=== PATIENT | male | born 1980 | race American Indian/Alaskan Native ===

== ENCOUNTER 2016-11-05 03:07 | Inpatient (IN) | payer BC ==
--- NOTE | 2016-11-05 03:40 | ED PDOC ---
Arrival/HPI <Huan Serrano - Last Filed: 11/05/16 05:55> - General Historian: Patient <Pj Rosales - Last Filed: 11/05/16 05:59> - General Chief Complaint: Abdominal Pain Time Seen by Provider: 11/05/16 03:09 - History of Present Illness Narrative History of Present Illness (Text): 11/05/16 03:37 This is a 36 yo M with no significant PMH that presents with abdominal pain for the past couple of hours. Pt states he was lying in bed and woke up with the pain. It is sharp in nature, intermittent primarily over the right quadrants of his abdomen. There is no radiation of pain. He has been having normal BMs. Denies any dark stools or blood. Denies fevers, chills, chest pain, sob, nausea or vomiting. (Pj Rosales) Past Medical History - Provider Review Nursing Documentation Reviewed: Yes - Cardiac Hx Cardiac Disorders: No - Pulmonary Hx Respiratory Disorders: No - Neurological Hx Neurological Disorder: No - HEENT Hx HEENT Disorder: No - Renal Hx Renal Disorder: No - Endocrine/Metabolic Hx Endocrine Disorders: No - Hematological/Oncological Hx Blood Disorders: No - Integumentary Hx Dermatological Disorder: No - Musculoskeletal/Rheumatological Hx Musculoskeletal Disorders: No Hx Falls: No - Gastrointestinal Hx Gastrointestinal Disorders: No - Genitourinary/Gynecological Hx Genitourinary Disorders: No - Psychiatric Hx Psychophysiologic Disorder: No Hx Substance Use: No <Pj Rosales - Last Filed: 11/05/16 05:59> Family/Social History - Physician Review Nursing Documentation Reviewed: Yes Family/Social History: No Known Family HX Smoking Status: Never Smoked Hx Alcohol Use: Yes (socially) Hx Substance Use: No <Pj Rosales - Last Filed: 11/05/16 05:59> Allergies/Home Meds <Huan Serrano - Last Filed: 11/05/16 05:55> <Pj Rosales - Last Filed: 11/05/16 05:59> Allergies/Adverse Reactions: Allergies No Known Allergies Allergy (Verified 05/28/15 21:07) Home Medications: Home Meds Medication Instructions Recorded Confirmed No Known Home Med 05/28/15 11/05/16 Review of Systems - Physician Review All systems were reviewed & negative as marked: Yes - Review of Systems Constitutional: Normal. absent: Fatigue, Fevers Eyes: Normal. absent: Vision Changes, Eye Pain ENT: Normal Respiratory: Normal. absent: SOB, Cough Cardiovascular: Normal. absent: Chest Pain, Palpitations Gastrointestinal: Abdominal Pain. absent: Stool Changes, Constipation, Diarrhea , Nausea, Vomiting Genitourinary Male: Normal. absent: Dysuria, Frequency Musculoskeletal: Normal Skin: Normal. absent: Rash, Pruritis Neurological: Normal. absent: Headache, Dizziness Endocrine: Normal Hemo/Lymphatic: Normal Psychiatric: Normal <Pj Rosales - Last Filed: 11/05/16 05:59> Physical Exam Vital Signs Reviewed: Yes Temperature: Afebrile Blood Pressure: Normal Pulse: Regular Respiratory Rate: Normal Appearance: Positive for: Well-Appearing, Non-Toxic, Comfortable Pain Distress: Mild Mental Status: Positive for: Alert and Oriented X 3 - Systems Exam Head: Present: Atraumatic, Normocephalic Pupils: Present: PERRL Respiratory/Chest: Present: Clear to Auscultation, Good Air Exchange. No: Respiratory Distress Cardiovascular: Present: Regular Rate and Rhythm, Normal S1, S2 Abdomen: Present: Normal Bowel Sounds. No: Tenderness, Distention Upper Extremity: Present: NORMAL PULSES, Neurovascularly Intact Lower Extremity: Present: NORMAL PULSES, Neurovascularly Intact Neurological: Present: Speech Normal, Motor Func Grossly Intact Skin: Present: Warm, Dry Psychiatric: Present: Alert, Oriented x 3 <Pj Rosales - Last Filed: 11/05/16 05:59> Vital Signs Temp Pulse Resp BP Pulse Ox 11/05/16 03:13 97.9 F 67 18 132/78 99 Medical Decision Making <Huan Serrano - Last Filed: 11/05/16 05:55> <Pj Rosales - Last Filed: 11/05/16 05:59> ED Course and Treatment: 11/05/16 04:21 Patient seen and evaluated with resident. Agree with HPI, clinical findings, plan and treatment. Patient is a 36 year old male who presents to the emergency department complaining of right sided intermittent abdominal pain. 11/05/16 05:55 CT abdomen pelvis shows distended gallbladder and choleithiasis. Case discussed with who is aware and agrees with the plan to observe at Med/surg for abdominal pain. Accepts patient under his service. (Huan Serrano) 11/05/16 03:40 36 yo M with diffuse right sided, intermittent abdominal pain Plan: - labs - abdominal xray - reassess and disposition 11/05/16 05:43 CT Abd/pelvis FINDINGS: Lower thorax: No acute findings. ABDOMEN: Liver: No acute findings. Gallbladder and bile ducts: Distended gallbladder. There is cholelithiasis without evidence of cholecystitis. Pancreas: No acute findings. No ductal dilation. Spleen: No acute findings. No splenomegaly. Adrenals: No acute findings. No mass. Kidneys and ureters: No acute findings. No obstructing stones. No hydronephrosis. Stomach and bowel: No acute findings. No obstruction. No mucosal thickening. Appendix: No findings to suggest acute appendicitis. PELVIS: Bladder: No acute findings. No stones. Reproductive: No acute findings. ABDOMEN and PELVIS: Intraperitoneal space: No acute findings. No free air. No significant fluid collection. Bones/joints: No acute fracture. No dislocation. Soft tissues: No acute findings. Vasculature: No acute findings. No abdominal aortic aneurysm. Lymph nodes: No acute findings. No enlarged lymph nodes. IMPRESSION: Distended gallbladder. There is cholelithiasis without evidence of cholecystitis. 11/05/16 05:43 Pt has elevated lipase at 698 11/05/16 05:[address] Montes who agrees to admit pt under his service. Results discussed with pt and is agreeable to admission (Pj Rosales) - Lab Interpretations Lab Results: 11/05/16 04:00 11/05/16 04:00 Lab Results 11/05/16 05:00: Urine Color Yellow, Urine Appearance Clear, Urine pH 6.0, Ur Specific Boykins >= 1.030, Urine Protein Negative, Urine Glucose (UA) Negative, Urine Ketones Negative, Urine Blood Negative, Urine Nitrate Negative, Urine Bilirubin Negative, Urine Urobilinogen 0.2, Ur Leukocyte Esterase Negative 11/05/16 04:00: Sodium 141, Potassium 3.9, Chloride 106, Carbon Dioxide 25, Anion Gap 14, BUN 15, Creatinine 1.2, Est GFR ( Amer) > 60, Est GFR (Non- Af Amer) > 60, Random Glucose 83, Calcium 9.5, Total Bilirubin 0.3, AST 33, ALT 31, Alkaline Phosphatase 134 H, Total Protein 7.4, Albumin 4.2, Globulin 3.1, Albumin/Globulin Ratio 1.4, Lipase 698 H 11/05/16 04:00: WBC 10.7, RBC 5.00, Hgb 15.1, Hct 43.9, MCV 87.8, MCH 30.2, MCHC 34.4, RDW 13.2, Plt Count 273, MPV 10.4, Gran % 67.6, Lymph % (Auto) 20.0 L , Webb % (Auto) 6.9 H, Eos % (Auto) 5.3 H, Baso % (Auto) 0.2, Gran # 7.25 H, Lymph # 2.1, Webb # 0.7 H, Eos # 0.6, Baso # 0.02 - RAD Interpretation Radiology Orders: 11/05/16 04:55 ABD & PELVIS W/O PO OR IV CONT [CT] Stat 11/05/16 05:54 CHEST PORTABLE [RAD] Stat 11/05/16 05:56 BILIARY SCAN (HIDA) [NM] Stat 11/05/16 05:57 GALL BLADDER [US] Stat - PA / TERMINAL SYSTEM OPERATOR / Resident Statement MD/DO has reviewed & agrees with the documentation as recorded. MD/ has examined the patient and agrees with the treatment plan. <Huan Serrano - Last Filed: 11/05/16 05:55> <Pj Rosales - Last Filed: 11/05/16 05:59> - Scribe Statement Tiffany Gilbert Provider Scribe Attestation: All medical record entries made by the Scribe were at my direction and personally dictated by me. I have reviewed the chart and agree that the record accurately reflects my personal performance of the history, physical exam, medical decision making, and the department course for this patient. I have also personally directed, reviewed, and agree with the discharge instructions and disposition. (Huan Serrano) Disposition/Present on Arrival <Huan Serrano - Last Filed: 11/05/16 05:55> - Present on Arrival Any Indicators Present on Arrival: No History of DVT/PE: No History of Uncontrolled Diabetes: No Urinary Catheter: No History of Decub. Ulcer: No History Surgical Site Infection Following: None - Disposition Have Diagnosis and Disposition been Completed?: Yes Disposition Time: 05:59 Patient Plan: Admission <Pj Rosales - Last Filed: 11/05/16 05:59> - Disposition Diagnosis: Abdominal pain Disposition: HOSPITALIZED Condition: STABLE Referrals: Rebecca Tijerina MD [Primary Care Provider] - Follow up with primary
[2016-11-05 04:24] LABS: ADD MANUAL DIFF? NO
[2016-11-05 04:44] LABS: BASO # 0.02 K/mm3 (0.0-2.0); BASO % 0.2 % (0.0-3.0); EOS # 0.6 (0.0-0.7); EOS % 5.3 % (1.5-5.0); GRAN # 7.25 (1.4-6.5); GRAN % 67.6 % (50.0-68.0); HEMATOCRIT 43.9 % (42.0-52.0); LYMPH # 2.1 (1.2-3.4); MEAN CELL VOLUME 87.8 fL (80.0-105.0); MEAN CORPUSCULAR HEMOGLOBIN 30.2 pg (25.0-35.0); MEAN CORPUSCULAR HGB CONC 34.4 g/dl (31.0-37.0); MEAN PLATELET VOLUME 10.4 fl (7.0-11.0); MONO # 0.7 (0.1-0.6); MONO % 6.9 % (1.0-6.0); PLATELET COUNT 273 10^3/uL (120.0-450.0); RED CELL DISTRIBUTION WIDTH 13.2 % (11.5-14.5); WHITE BLOOD COUNT 10.7 10^3/ul (4.5-11.0)
[2016-11-05 05:07] LABS: ALB/GLOB RATIO 1.4 (1.1-1.8); ALKALINE PHOSPHATASE 134 U/L (38-133); ALT/SGPT 31 U/L (7-56); AST/SGOT 33 U/L (15-59); BILIRUBIN,TOTAL 0.3 mg/dL (0.2-1.3); BLOOD UREA NITROGEN 15 mg/dL (7-21); CALCIUM 9.5 mg/dL (8.4-10.5); CARBON DIOXIDE 25 mmol/L (21-33); CHLORIDE 106 mmol/L (98-107); GFR AFRICAN-AMERICAN > 60; GLUCOSE,RANDOM 83 mg/dL (70-110); LIPASE 698 U/L (23-300); POTASSIUM 3.9 mmol/L (3.6-5.0); SODIUM 141 mmol/L (132-148); TOTAL PROTEIN 7.4 g/dL (5.8-8.3)
[2016-11-05 05:40] LABS: URINE BILIRUBIN NEGATIVE (NEGATIVE); URINE BLOOD NEGATIVE (NEGATIVE); URINE GLUCOSE (UA) NEGATIVE (NEGATIVE); URINE KETONE NEGATIVE (NEGATIVE); URINE LEUKOCYTE ESTERASE NEGATIVE Leu/uL (NEGATIVE); URINE PROTEIN NEGATIVE mg/dL (<30 mg/dL); URINE UROBILINOGEN 0.2 E.U./dL (<1 E.U./dL)
[2016-11-05 05:47] LABS: URINE APPEARANCE CLEAR (CLEAR); URINE COLOR YELLOW (YELLOW)
[2016-11-05] MEDS ORDERED: Sodium Chloride 0.9% 1,000 ML IV STA (05:55)
--- NOTE | 2016-11-05 07:51 | CT ---
PROCEDURE: CT Abdomen and Pelvis without intravenous contrast HISTORY: Abdominal pain COMPARISON: None. TECHNIQUE: CT scan of the abdomen and pelvis was performed without administration of intravenous contrast. Oral contrast was not administered. Coronal and sagittal reformatted images were obtained. Radiation dose: Total exam DLP = 992.49 mGy-cm. This CT exam was performed using one or more of the following dose reduction techniques: Automated exposure control, adjustment of the mA and/or kV according to patient size, and/or use of iterative reconstruction technique. FINDINGS: LOWER THORAX: There is bibasilar subsegmental atelectasis/scarring. LIVER: The liver is normal in size. No intrahepatic biliary ductal dilatation. GALLBLADDER AND BILE DUCTS: The gallbladder is distended and there is a small gallstone. No wall thickening or pericholecystic fluid. PANCREAS: The pancreas is normal in size. No ductal dilatation or calcifications. SPLEEN: The spleen is normal in size. ADRENALS: Both adrenal glands are normal in size without discrete nodule. There are calcifications in the medial limb of the left adrenal gland. KIDNEYS AND URETERS: Both kidneys are normal in size without hydronephrosis or nephrolithiasis. VASCULATURE: No evidence of aortic aneurysm. BOWEL: The small bowel loops are normal in caliber. There are scattered left colonic diverticula without CT evidence for acute diverticulitis. APPENDIX: Normal appendix. PERITONEUM: No free fluid. No free air. LYMPH NODES: No enlarged lymph nodes. BLADDER: Partially decompressed. REPRODUCTIVE: The prostate gland is normal in size. BONES: No acute fracture. Within normal limits for the patient's age with OTHER FINDINGS: None. IMPRESSION: Gallbladder distention and cholelithiasis. Please correlate clinically and with right upper quadrant ultrasound to exclude acute cholecystitis. Scattered left colonic diverticula without CT evidence for acute diverticulitis. A preliminary report was provided by [employer].
--- NOTE | 2016-11-05 08:40 | RAD ---
HISTORY: cp COMPARISON: 05/28/2015 FINDINGS: LUNGS: No active pulmonary disease. PLEURA: No significant pleural effusion identified, no pneumothorax apparent. CARDIOVASCULAR: Normal. OSSEOUS STRUCTURES: No significant abnormalities. VISUALIZED UPPER ABDOMEN: Normal. OTHER FINDINGS: None. IMPRESSION: No active disease.
--- NOTE | 2016-11-05 09:38 | US ---
HISTORY: Abdominal pain COMPARISON: None. TECHNIQUE: Grayscale imaging was performed. FINDINGS: LIVER: Measures 15.1 cm in length. Normal echogenicity of the liver parenchyma. No mass. No intrahepatic bile duct dilatation. GALLBLADDER: Unremarkable. No gallstones. COMMON BILE DUCT: Measures 4.5 mm. No stones. No dilatation. PANCREAS: Obscured by bowel gas. RIGHT KIDNEY: Measures 11.0 cm in length. Normal echogenicity. No calculus, mass, or hydronephrosis. AORTA: No aneurysmal dilatation. IVC: Unremarkable. OTHER FINDINGS: None . IMPRESSION: Limited examination due to excessive bowel gas. Allowing for this, no cholelithiasis or biliary dilatation. No nephrolithiasis.
[2016-11-05] MEDS: Sodium Chloride 0.9% 1,000 ML IV SCH ×2 (09:53→18:27)
[2016-11-05 11:12] LABS: INR 0.96 (0.93-1.08); PARTIAL THROMBOPLASTIN TIME 24.6 Seconds (23.7-30.8)
--- NOTE | 2016-11-05 12:39 | CP.PCM.PCO ---
Physician Communication Note - Physician Communication Note Physician Communication Note: Non Viz GB/Pancreatitis-?passed stone/?Add - On OR
[2016-11-05] MEDS: Piperacillin/Tazobact 3.375 gm 100 ML IVPB SCH ×3 (12:45→23:40)
[2016-11-05] MEDS ORDERED: Pneumococcal 23-Valent Vaccine IM ONE (13:14)
[2016-11-05 13:15] VITALS: BMI 34.5
[2016-11-05] MEDS: metroNIDAZOLE IV 500 mg/100 ml 500 MG/100 ML BAG IVPB SCH ×2 (14:06→23:32)
--- NOTE | 2016-11-05 16:04 | CP.PCM.CON ---
<Rosemarie Dougherty - Last Filed: 11/05/16 16:00> History of Present Illness - History of Present Illness History of Present Illness: Surgery: Dr. Brown CC: RUQ abdominal pain HPI: 36 y/o male who presents complaining of RUQ pain that started last night which woke him from sleep. He reports the pain as severe in nature and describes pain as "twisting, sharp" and takes his breath away. He denies having pain like this in the past and currently states the pain has resolved. He reports being in normal state of health at bedtime. He denies the pain being exacerbated by food. He reports movement and walking around made the pain better. He denies f/c/n/v. He reports normal bowel movements, denies diarrhea or constipation. PMH: denies PSH: tooth extraction Social: lives with at home w/ children. Report occasional ETOH and social tobacco use. Fhx: denies family history of gallbladder problems or colon disease. Review of Systems - Review of Systems All systems: reviewed and no additional remarkable complaints except Review of Systems: unless stated in HPI Past Patient History - Past Social History Smoking Status: Current Some Days Smoker (socially, [place]) - CARDIAC Hx Cardiac Disorders: No Other/Comment: chest pain may 2015 "turned out to be gas" - PULMONARY Hx Respiratory Disorders: No - NEUROLOGICAL Hx Neurological Disorder: No - HEENT Hx HEENT Problems: No - RENAL Hx Chronic Kidney Disease: No - ENDOCRINE/METABOLIC Hx Endocrine Disorders: No - HEMATOLOGICAL/ONCOLOGICAL Hx Blood Disorders: No - INTEGUMENTARY Hx Dermatological Problems: No - MUSCULOSKELETAL/RHEUMATOLOGICAL Hx Musculoskeletal Disorders: No Hx Falls: No - GASTROINTESTINAL Hx Gastrointestinal Disorders: No - GENITOURINARY/GYNECOLOGICAL Hx Genitourinary Disorders: No - PSYCHIATRIC Hx Psychophysiologic Disorder: No Hx Substance Use: No - SURGICAL HISTORY Hx Surgeries: No Meds Allergies/Adverse Reactions: Allergies Allergy/AdvReac Type Severity Reaction Status Date / Time No Known Allergies Allergy Verified 05/28/15 21:07 - Medications Medications: Current Medications Sodium Chloride (Sodium Chloride 0.9%) 1,000 mls @ 125 mls/hr IV .Q8H NEFTALY Stop: 11/08/16 15:44 Last Admin: 11/05/16 09:53 Dose: 125 mls/hr Metronidazole (Flagyl) 500 mg in 100 mls @ 100 mls/hr IVPB Q8 NEFTALY PRN Reason: Protocol Stop: 11/08/16 14:59 Last Admin: 11/05/16 14:06 Dose: 100 mls/hr Piperacillin Sod/Tazobactam Sod (Zosyn 3.375 In Ns 100ml) 100 mls @ 200 mls/hr IVPB Q6 NEFTALY PRN Reason: Protocol Stop: 11/10/16 06:29 Last Admin: 11/05/16 12:45 Dose: 200 mls/hr Ondansetron HCl (Zofran Inj) 4 mg IVP Q4H PRN PRN Reason: Nausea/Vomiting Pantoprazole Sodium (Protonix Inj) 40 mg IVP Q12 NEFTALY Last Admin: 11/05/16 11:14 Dose: 40 mg Physical Exam - Constitutional Appears: Well, Non-toxic, No Acute Distress - Head Exam Head Exam: ATRAUMATIC, NORMOCEPHALIC - Eye Exam Eye Exam: EOMI, Normal appearance - ENT Exam ENT Exam: Mucous Membranes Moist - Respiratory Exam Respiratory Exam: NORMAL BREATHING PATTERN. absent: Respiratory Distress - Cardiovascular Exam Cardiovascular Exam: REGULAR RHYTHM. absent: Tachycardia - GI/Abdominal Exam GI & Abdominal Exam: Soft. absent: Distended, Guarding, Rebound, Rigid, Tenderness - Extremities Exam Extremities exam: Negative for: calf tenderness - Neurological Exam Neurological exam: Alert, Oriented x3 - Psychiatric Exam Psychiatric exam: Normal Affect, Normal Mood - Skin Skin Exam: Dry, Normal Color, Warm Results - Vital Signs Recent Vital Signs: Last Vital Signs Temp 97.8 F 11/05/16 13:06 Pulse 66 11/05/16 13:06 Resp 18 11/05/16 13:06 BP 111/62 11/05/16 13:06 Pulse Ox 98 11/05/16 07:21 - Labs Result Diagrams: 11/05/16 04:00 11/05/16 04:00 Labs: Laboratory Results - last 24 hr 11/05/16 11/05/16 11/05/16 10:45 11:00 12:30 PT 10.4 INR 0.96 APTT 24.6 Amylase 136 H Urine Opiates Screen Negative Urine Methadone Screen Negative Ur Barbiturates Screen Negative Ur Phencyclidine Scrn Negative Ur Amphetamines Screen Negative U Benzodiazepines Scrn Negative U Oth Cocaine Metabols Negative U Cannabinoids Screen Negative - Impressions Impression: HIDA: gallbladder not visualized Assessment & Plan - Assessment and Plan (Free Text) Assessment: 36 y/o male w/ RUQ abdominal pain most likely 2/2 cholelithiasis Plan: -HIDA scan positive, w/ slightly elevated lipase, possible gallstone pancreatitis -abdominal pain resolved at this time -will plan for OR on Friday -NPO at [place] -cont IVFs -pain control -am labs -[facility] <Gilmar Brown - Last Filed: 11/05/16 17:09> Meds - Medications Medications: Current Medications Sodium Chloride (Sodium Chloride 0.9%) 1,000 mls @ 125 mls/hr IV .Q8H NEFTALY Stop: 11/08/16 15:44 Last Admin: 11/05/16 09:53 Dose: 125 mls/hr Metronidazole (Flagyl) 500 mg in 100 mls @ 100 mls/hr IVPB Q8 NEFTALY PRN Reason: Protocol Stop: 11/08/16 14:59 Last Admin: 11/05/16 14:06 Dose: 100 mls/hr Piperacillin Sod/Tazobactam Sod (Zosyn 3.375 In Ns 100ml) 100 mls @ 200 mls/hr IVPB Q6 NEFTALY PRN Reason: Protocol Stop: 11/10/16 06:29 Last Admin: 11/05/16 12:45 Dose: 200 mls/hr Ondansetron HCl (Zofran Inj) 4 mg IVP Q4H PRN PRN Reason: Nausea/Vomiting Pantoprazole Sodium (Protonix Inj) 40 mg IVP Q12 NEFTALY Last Admin: 11/05/16 11:14 Dose: 40 mg Results - Vital Signs Recent Vital Signs: Last Vital Signs Temp 97.8 F 11/05/16 13:06 Pulse 66 11/05/16 13:06 Resp 18 11/05/16 13:06 BP 111/62 11/05/16 13:06 Pulse Ox 98 11/05/16 07:21 - Labs Result Diagrams: 11/05/16 04:00 11/05/16 04:00 Labs: Laboratory Results - last 24 hr 11/05/16 11/05/16 11/05/16 10:45 11:00 12:30 PT 10.4 INR 0.96 APTT 24.6 Amylase 136 H Urine Opiates Screen Negative Urine Methadone Screen Negative Ur Barbiturates Screen Negative Ur Phencyclidine Scrn Negative Ur Amphetamines Screen Negative U Benzodiazepines Scrn Negative U Oth Cocaine Metabols Negative U Cannabinoids Screen Negative Assessment & Plan - Assessment and Plan (Free Text) Plan: Gallstone Pancreatitis Rx If pancreatitis continues to defervwesce the patient can have the GB/IOC in the am--he and his concur This consultation done under my direct supervisdion Kvng Brown MD FACS
--- NOTE | 2016-11-05 16:20 | CON ---
DATE: 11/05/2016 REQUESTING PHYSICIAN: Dr. Montes. REASON FOR CONSULTATION: I have been asked to see this 36-year-old male who was admitted to the hosp ital after experiencing severe right upper quadrant abdominal pain which woke him up from sleep. The patient states that he had a pastrami sandwich and chicken fingers the evening prior to developing h is pain. He experienced some nausea, but no vomiting. He denies any fevers or chills. He denies an y prior medical problems. CT scan of the abdomen performed in the Emergency Room showed a small gall stone with a distended gallbladder. The patient was also found to have an elevated lipase in the 600 range. The patient also underwent a hepatobiliary scan, which initially showed nonvisualization of the gallbladder. Delayed studies are pending. He currently denies any abdominal pain. PAST MEDICAL HISTORY: Unremarkable. SOCIAL HISTORY: He consumes alcohol socially, denies cigarette smoking. FAMILY HISTORY: Noncontributory. REVIEW OF SYSTEMS: A 14-point review of systems is notable for right upper quadrant abdominal pain a nd nausea. PHYSICAL EXAMINATION: GENERAL: Well-developed male lying in bed in no acute distress. VITAL SIGNS: Reveal temperature of 97.8, blood pressure 111/62, heart rate 66. HEENT: Reveals sclerae to be white, conjunctivae pink. NECK: Supple. CHEST: Lungs are clear. HEART: Reveals a regular rate and rhythm. ABDOMEN: Obese, soft, nontender. EXTREMITIES: Show no edema. LABORATORY DATA: Reveal white blood cell count 10.7, hemoglobin 15.1. Chemistries reveal normal kashif ctrolytes. Normal AST, ALT, alkaline phosphatase 134, amylase 136, lipase is 698. IMPRESSION: A 36-year-old male awakened in the middle of night with severe right upper quadrant abdo mamta pain with a CT scan of the abdomen and pelvis showing a small gallstone and a distended gallbla dder with elevated amylase and lipase. Initial hepatobiliary scan shows nonvisualization of gallblad wing. The patient has gallstone pancreatitis with no CT evidence of pancreatitis. RECOMMENDATIONS: 1. Keep n.p.o. 2. Continue IV fluid hydration. 3. Analgesics as needed. 4. Surgical evaluation for cholecystectomy. Huan Fountain MD cc: 79 TT: 11/05/2016 16:19:28 Confirmation # [id number] Dictation # [id number] dn
--- NOTE | 2016-11-05 18:00 | NM ---
PROCEDURE: Nuclear Medicine Hepatobiliary Scan HISTORY: ruq pain COMPARISON: November 05, 2016. Right upper quadrant ultrasound TECHNIQUE: 5.2 mCi of technetium 99m Mebrofenin was administered intravenously. Planar images of the abdomen were obtained at 5 min intervals to 60 mins. Delayed images were also obtained. FINDINGS: LIVER: Timely and homogenous uptake. COMMON BILE DUCT: identified at 10 mins. GALLBLADDER: identified at 5 hours. SMALL BOWEL: Identified at 10 mins. IMPRESSION: Normal Hepatobiliary Scan. The cystic duct is patent. Delayed vision of the gallbladder identified.
--- NOTE | 2016-11-05 18:20 | HP ---
The patient is a 36-year-old -Israeli male who presented to the Emergency Room with upper trace drant and epigastric pain since 1:00 this morning. The patient denies any changes in his usual habit . The patient's 13-system review was positive for right upper quadrant epigastric upper abdominal pa in. The patient woke up with this pain. The patient described the pain as severe. The patient hilton es any nausea, vomiting, diarrhea. Denies any hemoptysis, hematemesis, melena. CODE STATUS: Full code. LIVING WILL AND ADVANCED DIRECTIVE: None. ALLERGIES: None. HEIGHT: 5 feet 9 inches. WEIGHT: 234. BMI: 35. ALLERGIES: None. HOME MEDICATIONS: None. SOCIAL HISTORY: Denies substance abuse. Social alcohol use and minimal smoking of cigarettes. FAMILY HISTORY: Not available. 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 ALLERGIES: None. PAST SURGICAL HISTORY: The patient denied. SOCIAL HISTORY: Positive for social alcohol use. PHYSICAL EXAMINATION: VITAL SIGNS: T-max 97.8, pulse 67-74, blood pressure 111/62 to 132/78, respirations 18, O2 sat 97%-9 8%. GENERAL: The patient is seen lying in the bed. HEAD: Normocephalic, atraumatic. HEENT: Shows pink conjunctivae, anicteric sclerae. No oropharyngeal lesion. NECK: No neck rigidity, soft carotid bruit. CHEST: Kyphosis. LUNGS: Shows no rales, crackles, or wheezing. CARDIOVASCULAR: Shows S1, S2, regular rhythm. ABDOMEN: Soft, protuberant. Positive epigastric. Positive . Positive right upper quadrant te nderness. No rebound tenderness. Positive voluntary guarding. No costovertebral angle tenderness. GENITALIA: Male. RECTAL: Deferred. EXTREMITIES: Shows no pitting edema, no calf tenderness, no Homans' sign. NEUROLOGIC: The patient is alert, awake, oriented x 3. Cranial nerves II-XII intact. Gait examinat ion is not tested. MUSCULOSKELETAL: Shows a body mass index of 36. VASCULAR: Palpable pulses. NEUROLOGIC: The patient has no deficit. Cranial nerves II-XII intact. DIAGNOSTICS: WBC 10.7, hemoglobin and hematocrit 15.1 and 43.9, platelet 273. Differential is michele l. PT, PTT is 10.4 and 24.6. Sodium 141, potassium 3.9, chloride 106, CO2 of 25, anion gap 14, BUN 15, creatinine 1.2, GFR greater than 60, glucose 83, calcium 9.5, alkaline phosphatase 134. Amylase 136, lipase 698. Urine pH 6.0, specific gravity greater than 1.030. Rest of the urinalysis is negat sharifa. Urine drug screen is negative. The patient had an abdominal CT done, which was reviewed, which shows: 1. Bibasilar subsegmental atelectasis and scarring. 2. Distended gallbladder and small gallstone. Colonic diverticulosis noted. Gallbladder distention with cholelithiasis noted. Scattered colonic diverticulosis noted. The patient also had a chest x-ray done, which shows no active disease. The patient's gallbladder ul trasound was noted. Gallbladder ultrasound was noted. EKG done in the Emergency Room shows sinus rh ythm. The patient was evaluated in the Emergency Room. The patient had a HIDA scan done, which show s nonvisualization of gallbladder. IMPRESSION AND PLAN: 1. Questionable and probable acute cholecystitis with nonvisualized visualization of the gallbladder . 2. Upper abdominal and right upper quadrant abdominal pain. 3. Cholelithiasis with distended gallbladder. 4. Questionable gallstone pancreatitis. 5. Gallstone pancreatitis. 6. Questionable biliary colic. 7. Nonvisualized gallbladder on HIDA scan with gallstone pancreatitis. 8. Obesity with elevated body mass index of 35. 9. Elevated alkaline phosphatase. 10. Bibasilar atelectasis. 11. Distended gallbladder with cholelithiasis. 12. Left adrenal gland calcification. 13. Scattered left colonic diverticulosis without diverticulitis. PLAN: At this time, the patient has been admitted to [facility]. The patient has been ordered serial labs. Gastrointestinal consultation and surgical consultation ordered. CURRENT MEDICATIONS: 1. DuoNeb nebulizer every 6 hours. 2. Flagyl 500 IV q. 8. 3. Protonix 40 mg IV q. 12. 4. IV fluids 0.9 normal saline at 125 mL an hour. 5. Zofran 4 mg IV q. 4 p.r.n. 6. Zosyn 3.375 grams IV q. 6 hours. The patient has been ordered chest PT, incentive spirometry. The patient is kept n.p.o. diet. Out o f bed to chair, SCDs, LYSSA chiuings ordered. At present, the patient seen by Dr. Brown from [facility] and Dr. Fountain from GI, both recommending surgical intervention within the next 24-48 hours, which t he patient has been informed about. At present, the patient is seen in room 565, bed 2. The patient was updated and explained about the details of his medical condition, diagnosis, test results, etc., was explained to the patient in [facility] and all questions and concerns answered, which he acknowledged and understood. Dictated, electronically signed, not read. Obinna Montes MD cc: [id number] TT: 11/05/2016 18:19:30 az
[2016-11-05] MEDS: Albuterol-Ipratrop 3 mg / 0.5 (3 ml) UD IH SCH (20:19)
--- NOTE | 2016-11-05 22:35 | CARD ---
APPROVED REPORT EKG Measurement Heart [id number] <Conclusion> Normal sinus rhythm Normal ECG
[2016-11-06] MEDS: Albuterol-Ipratrop 3 mg / 0.5 (3 ml) UD IH SCH ×3 (02:10→20:13)
[2016-11-06] MEDS: Sodium Chloride 0.9% 1,000 ML IV SCH ×2 (05:20→16:08)
[2016-11-06] MEDS: Piperacillin/Tazobact 3.375 gm 100 ML IVPB SCH ×2 (05:23→21:06)
[2016-11-06] MEDS: metroNIDAZOLE IV 500 mg/100 ml 500 MG/100 ML BAG IVPB SCH ×3 (05:24→21:19)
[2016-11-06 07:07] LABS: ADD MANUAL DIFF? NO
[2016-11-06 07:12] LABS: BASO # 0.03 K/mm3 (0.0-2.0); BASO % 0.4 % (0.0-3.0); EOS # 0.3 (0.0-0.7); EOS % 4.3 % (1.5-5.0); GRAN # 5.09 (1.4-6.5); GRAN % 64.7 % (50.0-68.0); HEMATOCRIT 42.4 % (42.0-52.0); LYMPH # 1.9 (1.2-3.4); LYMPH % 24.7 % (22.0-35.0); MEAN CORPUSCULAR HEMOGLOBIN 30.5 pg (25.0-35.0); MEAN CORPUSCULAR HGB CONC 34.7 g/dl (31.0-37.0); MONO # 0.5 (0.1-0.6); MONO % 5.9 % (1.0-6.0); PLATELET COUNT 254 10^3/uL (120.0-450.0); RED CELL DISTRIBUTION WIDTH 13.2 % (11.5-14.5); WHITE BLOOD COUNT 7.9 10^3/ul (4.5-11.0)
[2016-11-06 07:26] LABS: ALB/GLOB RATIO 1.2 (1.1-1.8); ALKALINE PHOSPHATASE 86 U/L (38-133); ALT/SGPT 34 U/L (7-56); AMYLASE 97 U/L (35-125); AST/SGOT 25 U/L (15-59); BILIRUBIN,DIRECT 0.3 mg/dL (0.0-0.4); BILIRUBIN,TOTAL 1.2 mg/dL (0.2-1.3); BLOOD UREA NITROGEN 13 mg/dL (7-21); CALCIUM 9.2 mg/dL (8.4-10.5); CARBON DIOXIDE 22 mmol/L (21-33); CHLORIDE 109 mmol/L (98-107); GFR AFRICAN-AMERICAN > 60; GLUCOSE,RANDOM 79 mg/dL (70-110); LIPASE 251 U/L (23-300); POTASSIUM 3.9 mmol/L (3.6-5.0); SODIUM 139 mmol/L (132-148); TOTAL PROTEIN 6.5 g/dL (5.8-8.3)
[2016-11-06] MEDS ORDERED: Propofol 10 mg/ml Inj (20 ML) ONE (10:04)
[2016-11-06] MEDS ORDERED: Succinylcholine 200 mg/10 ml Inj IV ONE (10:05)
[2016-11-06] MEDS ORDERED: Rocuronium 10 mg/ml (5 ml) ONE (10:05)
[2016-11-06] MEDS ORDERED: Neostigmine Methylsulfate 3mg/3ml Syringe IV ONE (10:05)
[2016-11-06] MEDS ORDERED: Lidocaine 1% Inj (20ml) ONE (10:06)
[2016-11-06] MEDS ORDERED: Bupivacaine 0.5% Inj(30mL) ONE (10:12)
[2016-11-06] MEDS ORDERED: Iohexol 240 (50 ml) ONE (10:12)
--- NOTE | 2016-11-06 10:48 | PN ---
DATE: 11/06/2016 SUBJECTIVE: The patient is lying in bed. He feels much better without any further abdominal pain. He has not had any further nausea and vomiting. PHYSICAL EXAMINATION: VITAL SIGNS: Reveal temperature of 97.9, blood pressure 120/76, heart rate 64. HEENT: Reveals sclerae to be white, conjunctivae pink. NECK: Supple. CHEST: Lungs are clear. HEART: Reveals regular rate and rhythm. ABDOMEN: Soft, nontender, flabby. No mass. EXTREMITIES: Show no edema. LABORATORY DATA: Reveal normal CBC, normal white count. Chemistries reveal chloride 109. AST, ALT, alk phos are all normal. Amylase and lipase are normal this morning. Hepatobiliary scan showed del ayed visualization of the gallbladder. IMPRESSION: A 36-year-old male with sudden onset of right upper quadrant abdominal pain, found to johnson ve elevated amylase and lipase consistent with gallstone pancreatitis. The patient most likely passe d a small stone or sludge. RECOMMENDATIONS: The patient is to have a cholecystectomy today. Huan Fountain MD cc: [phone] TT: 11/06/2016 10:47:35 Confirmation # [id number] Dictation # [id number] kalli
[2016-11-06] MEDS ORDERED: Lactated Ringer's 1,000 ML IV SCH (12:26)
[2016-11-06] MEDS ORDERED: HYDROmorphone 0.5 mg/0.5 ml ISec IVP PRN (12:26)
[2016-11-06] MEDS ORDERED: HYDROmorphone 1 mg/ml ISec IVP PRN (12:29)
--- NOTE | 2016-11-06 12:29 | PCM.SURG1 ---
Surgeon's Initial Post Op Note - Surgeon's Notes Surgeon: Kevin Facilities Mechanical Design Engineer: PGY3 Type of Anesthesia: General Endo Pre-Operative Diagnosis: Gallstone pancreatitis Operative Findings: gallstones Post-Operative Diagnosis: Gallstone pancreatitis Operation Performed: Laparoscopic cholecystectomy with IOC, Lysis of adhesions, fulguration of the gallbladder fossa Specimen/Specimens Removed: gallbladder Estimated Blood Loss: EBL {In ML}: 50 Blood Products Given: N/A Drains Used: Francisco Post-Op Condition: Good Date of Surgery/Procedure: 11/06/16 Time of Surgery/Procedure: 10:15
--- NOTE | 2016-11-06 15:41 | RAD ---
PROCEDURE: Operative cholangiogram HISTORY: R/O OBSTRUCTION COMPARISON: TECHNIQUE: Fluoroscopy was provided in the operating room. Four images were submitted FINDINGS: Contrast flows into the duodenum without obstruction. The common duct is normal in caliber with no filling defects IMPRESSION: As above
[2016-11-06 16:55] LABS: ADD MANUAL DIFF? NO
[2016-11-06 17:15] LABS: BASO # 0.02 K/mm3 (0.0-2.0); BASO % 0.1 % (0.0-3.0); EOS # 0.1 (0.0-0.7); EOS % 0.5 % (1.5-5.0); GRAN # 10.88 (1.4-6.5); GRAN % 80.5 % (50.0-68.0); HEMATOCRIT 41.6 % (42.0-52.0); LYMPH # 1.7 (1.2-3.4); LYMPH % 12.6 % (22.0-35.0); MEAN CELL VOLUME 88.5 fL (80.0-105.0); MEAN CORPUSCULAR HEMOGLOBIN 30.2 pg (25.0-35.0); MEAN CORPUSCULAR HGB CONC 34.1 g/dl (31.0-37.0); MEAN PLATELET VOLUME 10.4 fl (7.0-11.0); MONO # 0.9 (0.1-0.6); MONO % 6.3 % (1.0-6.0); PLATELET COUNT 298 10^3/uL (120.0-450.0); RED CELL DISTRIBUTION WIDTH 12.8 % (11.5-14.5); WHITE BLOOD COUNT 13.5 10^3/ul (4.5-11.0)
[2016-11-06] MEDS ORDERED: Piperacillin/Tazobact 3.375 gm 100 ML IVPB SCH (18:00)
--- NOTE | 2016-11-06 18:53 | CP.PCM.PCO ---
Physician Communication Note - Physician Communication Note Physician Communication Note: PO 25cc blood-drain/HgB stable 14.2/Rx Liquids
[2016-11-06] MEDS ORDERED: Acetylcysteine 20% Inhal Soln (4ml) IH SCH (20:00)
[2016-11-06] MEDS: Acetylcysteine 20% Inhal Soln (4ml) IH SCH (20:12)
--- NOTE | 2016-11-06 21:41 | PN ---
DATE: 11/06/2016 The patient is seen postoperatively in room 565, bed 2. The patient is seen lying in the bed. The p atient is comfortable, watching TV. The patient's at bedside. Overnight and 24 hours nurses' n otes were reviewed. The patient returned from surgery. PHYSICAL EXAMINATION: VITAL SIGNS: T-max 98.3, pulse 68, 74, 75, 86; blood pressure 133/74, 135/80, 150/92, 133/74, 124/65 , 146/86; respirations 20, O2 sat 95% to 96%. HEAD: Normocephalic, atraumatic. HEENT: Shows pink conjunctivae. Dry oral mucosa. NECK: No neck rigidity. CHEST: Symmetrical. LUNGS: Shows no rales, crackles, or wheezing. CARDIOVASCULAR: S1, S2, regular rhythm. ABDOMEN: Protuberant, positive diffuse voluntary guarding and tenderness, positive right-sided MIKE dr shelby. Positive right upper abdominal dressing. GENITALIA: Male. RECTAL: Deferred. EXTREMITIES: Shows no pitting edema, no calf tenderness, no Homans sign. NEUROLOGIC: The patient is alert, awake, oriented x 3. MUSCULOSKELETAL: Shows a body mass index of 35. VASCULAR: Positive pulses. DIAGNOSTICS: WBC 13.5, hemoglobin/hematocrit 14.2/41.6, platelets 298. Chemistry: Sodium 139, pota ssium 3.9, chloride 109, CO2 of 22, anion gap 12, BUN 13, creatinine 1.3, GFR greater than 60, glucos e 79, calcium 9.2, magnesium 2.0. LFTs are normal. HIDA scan shows delayed visualization of the gal lbladder which is identified at 5 hours. EKG shows sinus rhythm. IMPRESSION AND PLAN: 1. Gallstone pancreatitis. 2. Passage of a gallstone with gallbladder sludge. 3. Abdominal pain with cholecystitis and gallstone pancreatitis. 4. Status post laparoscopic cholecystectomy with intraoperative cholangiogram, laparoscopic lysis of adhesions and fulguration of the liver bed. 5. Postoperative leukocytosis. 6. Granulocytosis. 7. Gallstone pancreatitis. 8. Obesity with elevated body mass index of 35. 9. Bibasilar atelectasis. PLAN: At this time, the patient has been seen postoperatively. The patient has been ordered serial labs. The patient's wound cultures from the cholecystectomy are pending. CURRENT CONSULTATIONS: Surgery, Dr. Brown; gastroenterology, Dr. Fountain. CURRENT MEDICATIONS: 1. The patient is started on DuoNeb and Mucomyst nebulizer treatment every 6 hours 2. Dilaudid 0.5 mg IV q. 15 minutes p.r.n. x 6 doses. 3. Dilaudid 1 mg IV q. 4 p.r.n. 4. Flagyl 500 IV q. 8. 5. Protonix 40 mg IV q. 12. 6. IV fluids 0.9 normal saline at 125 mL an hour. 7. Zofran 4 mg IV q. 4 p.r.n. 8. Zosyn 3.375 grams IV q. 6. The patient is on chest PT, incentive spirometry, out of bed. SCDs, LYSSA stockings have been ordered. The patient's repeat laboratory has been ordered. The patient will be followed closely by surgical service. The patient has been updated about his condition, diagnosis, treatment plan, management pl an at length and all questions and concerns answered. Dictated and electronically signed, not read. Obnina Montes MD cc: [id number] TT: 11/06/2016 21:40:25 Confirmation # [id number] Dictation # [id number] mn
[2016-11-07] MEDS: Sodium Chloride 0.9% 1,000 ML IV SCH ×2 (00:05→15:21)
[2016-11-07] MEDS: Piperacillin/Tazobact 3.375 gm 100 ML IVPB SCH (01:24)
[2016-11-07] MEDS: Acetylcysteine 20% Inhal Soln (4ml) IH SCH ×3 (02:37→13:30)
[2016-11-07] MEDS: Albuterol-Ipratrop 3 mg / 0.5 (3 ml) UD IH SCH ×3 (02:38→13:30)
[2016-11-07] MEDS: metroNIDAZOLE IV 500 mg/100 ml 500 MG/100 ML BAG IVPB SCH ×2 (05:03→15:21)
[2016-11-07 07:16] LABS: ADD MANUAL DIFF? NO
[2016-11-07 07:20] LABS: BASO # 0.02 K/mm3 (0.0-2.0); BASO % 0.2 % (0.0-3.0); EOS # 0.2 (0.0-0.7); EOS % 2.8 % (1.5-5.0); GRAN # 5.98 (1.4-6.5); GRAN % 69.9 % (50.0-68.0); LYMPH # 1.7 (1.2-3.4); LYMPH % 20.1 % (22.0-35.0); MEAN CELL VOLUME 87.8 fL (80.0-105.0); MEAN CORPUSCULAR HEMOGLOBIN 30.2 pg (25.0-35.0); MEAN CORPUSCULAR HGB CONC 34.4 g/dl (31.0-37.0); MEAN PLATELET VOLUME 9.8 fl (7.0-11.0); MONO # 0.6 (0.1-0.6); PLATELET COUNT 252 10^3/uL (120.0-450.0); RED CELL DISTRIBUTION WIDTH 13.1 % (11.5-14.5); WHITE BLOOD COUNT 8.6 10^3/ul (4.5-11.0)
[2016-11-07 07:35] LABS: ALB/GLOB RATIO 1.1 (1.1-1.8); ALKALINE PHOSPHATASE 74 U/L (38-133); ALT/SGPT 82 U/L (7-56); AMYLASE 85 U/L (35-125); AST/SGOT 63 U/L (15-59); BILIRUBIN,DIRECT 0.3 mg/dL (0.0-0.4); BILIRUBIN,TOTAL 0.9 mg/dL (0.2-1.3); BLOOD UREA NITROGEN 10 mg/dL (7-21); CALCIUM 8.7 mg/dL (8.4-10.5); CARBON DIOXIDE 21 mmol/L (21-33); CHLORIDE 109 mmol/L (98-107); GFR AFRICAN-AMERICAN > 60; GLUCOSE,RANDOM 83 mg/dL (70-110); LIPASE 190 U/L (23-300); POTASSIUM 3.9 mmol/L (3.6-5.0); SODIUM 139 mmol/L (132-148); TOTAL PROTEIN 6.4 g/dL (5.8-8.3)
[2016-11-07 08:00] VITALS: BP 122/81; PULSE 76; RESP 16; TEMP 97.8; O2SAT 98
[2016-11-07] MEDS ORDERED: Oxycodone/Acetaminophen 5/325 mg Tab PO PRN (08:02)
--- NOTE | 2016-11-07 10:11 | PN ---
DATE: 11/07/2016 SUBJECTIVE: The patient is lying in bed, comfortable. He complains of some mild discomfort at his J P drain site. He is status post laparoscopic cholecystectomy, postop day #1. PHYSICAL EXAMINATION: VITAL SIGNS: Reveal temperature of 97.8, blood pressure 122/81, heart rate is 76. HEENT: Reveals sclerae to be white, conjunctivae are pink. NECK: Supple. CHEST: Reveals lungs to be clear. HEART: Reveals regular rate and rhythm. ABDOMEN: Soft. EXTREMITIES: He has a MIKE drain in the right abdomen draining some sanguineous fluid. His wounds katerin ear clean. EXTREMITIES: Show no edema. LABORATORY DATA: Reveal white blood cell count 8.6, hemoglobin 13.4. Chemistries reveal normal elec trolytes with AST 63, ALT 82. Amylase and lipase are down to normal. Intraoperative cholangiogram w as normal. IMPRESSION: A 36-year-old male with gallstone pancreatitis, postoperative day 1, laparoscopic cholec ystectomy with a normal intraoperative cholangiogram. His amylase and lipase are down to normal. He is tolerating a diet. RECOMMENDATIONS: Continue postop care. Huan Fountain MD cc: [phone] TT: 11/07/2016 10:10:04 Confirmation # [id number] Dictation # [id number] mn
--- NOTE | 2016-11-07 12:59 | CP.PCM.PN ---
Subjective - Date & Time of Evaluation Date of Evaluation: 11/07/16 Time of Evaluation: 09:15 - Subjective Subjective: General Surgery Pt S&E, NAEO. pain controlled by meds. Tolerated liquids. Minimal drain output. Ambulating, using IS, +BM. Wants to go home. Objective - Vital Signs/Intake and Output Vital Signs (last 24 hours): Temp Pulse Resp BP Pulse Ox 97.8 F 76 16 122/81 98 11/07/16 07:30 11/07/16 07:30 11/07/16 07:30 11/07/16 07:30 11/07/16 07:30 Intake and Output: 11/07/16 11/07/16 06:59 18:59 Intake Total 0 360 Balance 0 360 - Medications Medications: Current Medications Acetylcysteine (Acetylcysteine 20%) 4 ml IH [id number] [facility] Last Admin: 11/07/16 07:43 Dose: 4 ml Albuterol/Ipratropium (Duoneb 3 Mg/0.5 Mg (3 Ml) Ud) 3 ml IH [id number] [facility] Last Admin: 11/07/16 07:42 Dose: 3 ml Hydromorphone HCl (Dilaudid) 1 mg IVP Q4H PRN PRN Reason: Pain, moderate (4-7) Last Admin: 11/06/16 16:15 Dose: 1 mg Sodium Chloride (Sodium Chloride 0.9%) 1,000 mls @ 125 mls/hr IV .Q8H [facility] Last Admin: 11/07/16 00:05 Dose: 125 mls/hr Metronidazole (Flagyl) 500 mg in 100 mls @ 100 mls/hr IVPB Q8 NEFTALY PRN Reason: Protocol Last Admin: 11/07/16 05:03 Dose: 100 mls/hr Ondansetron HCl (Zofran Inj) 4 mg IVP Q4H PRN PRN Reason: Nausea/Vomiting Oxycodone/Acetaminophen (Percocet 5/325 Mg Tab) 1 tab PO Q6H PRN PRN Reason: Pain, moderate (4-7) Stop: 11/10/16 08:03 Last Admin: 11/07/16 09:04 Dose: 1 tab Pantoprazole Sodium (Protonix Inj) 40 mg IVP Q12 [facility] Last Admin: 11/07/16 09:02 Dose: 40 mg - Labs Labs: 11/07/16 07:00 11/07/16 07:00 PT 10.4 Seconds (9.9-11.8) 11/05/16 10:45 INR 0.96 (0.93-1.08) 11/05/16 10:45 APTT 24.6 Seconds (23.7-30.8) 11/05/16 10:45 - Constitutional Appears: Non-toxic, No Acute Distress - Head Exam Head Exam: ATRAUMATIC, NORMOCEPHALIC - Eye Exam Eye Exam: EOMI. absent: Scleral icterus - Respiratory Exam Respiratory Exam: NORMAL BREATHING PATTERN. absent: Respiratory Distress - GI/Abdominal Exam GI & Abdominal Exam: Soft, Tenderness (mild at incisions). absent: Distended, Firm, Guarding, Rigid, Rebound Additional comments: incisions C/D/I drain in place with serosanguinous fluid 50cc since surgery - Neurological Exam Neurological Exam: Alert, Awake, Oriented x3 - Skin Skin Exam: Dry, Warm Assessment and Plan - Assessment and Plan (Free Text) Assessment: 36M S/P lap leeanna with IOC for gallstone pancreatitis, POD#1 Plan: Drain removed. Advanced diet. OK for DC from a surgical standpoint Follow up next week with Dr. Brown. Ok to shower Low fat diet D/W Dr. Kevin Corley PGY3
--- NOTE | 2016-11-07 23:33 | DS ---
HISTORY OF PRESENT ILLNESS: The patient is seen in room 565, bed 2. The patient underwent a laparos copic cholecystectomy yesterday and intraoperative cholangiogram. The patient was started on liquid diet, which she is tolerating. The patient is complaining of decreasing abdominal pain. The patient is seen lying in the bed, sleeping. Overnight nursing notes were reviewed. PHYSICAL EXAMINATION: VITAL SIGNS: T-max afebrile, heart rate 76, blood pressure 122/81. GENERAL: The patient is seen lying in the bed. HEAD: Normocephalic, atraumatic. HEENT: Shows pink conjunctivae, anicteric sclerae. Dry oral mucosa. NECK: No neck rigidity. CHEST: Kyphosis. LUNGS: Show occasional rhonchi bilaterally at the bases. CARDIOVASCULAR: S1, S2. Regular rhythm. ABDOMEN: Soft. Positive bowel sounds. Positive MIKE drain. Positive dressing. Decreasing bloody, se rosanguinous discharge noted from MIKE drain. GENITOURINARY: Male. RECTAL: Deferred. EXTREMITIES: No pitting edema, no calf tenderness, no Charles's sign. NEUROLOGIC: The patient is alert, awake, oriented x 3. Cranial nerves II-XII intact. GAIT: Not tested. VASCULAR: Palpated pulses. BODY MASS INDEX: Elevated. MOTOR: Motor strength is 5/5. DIAGNOSTICS: CBC: White count is within normal limits. Hemoglobin and hematocrit are within normal limits. Granulocytes with 70% segs. Chemistry shows an AST of 63, ALT of 82, which is new. The rest o f the chemistry and rest of the LFTs are normal. FINAL IMPRESSION, PLAN AND DISCHARGE DIAGNOSES: 1. Acute cholecystitis and gallstone pancreatitis. 2. Passed gallstone. 3. morbid obesity. 4. Bibasilar atelectasis. 5. Cholelithiasis. 6. Obesity with elevated body mass index. DISCHARGE MEDICATIONS: The patient is discharged on Augmentin 875 twice a day for 7-10 days, Flagyl 500 three times a day for 7-10 days, Protonix 40 mg daily. The patient was given prescription for Pe rcocet by the visiting nurses. During this hospitalization, the patient was extensively explained about the details of his medical c ondition, need for further management. The patient was explained strict diet, including exerci se. Obinna Montes MD cc: [phone] TT: 11/07/2016 23:32:14 ln
--- NOTE | 2016-11-11 07:50 | OP ---
PROCEDURE DATE: 11/06/2016 He is admitted on 11/05/2016 to room 565, bed 2. SURGEON: Gilmar Brown MD DONOR RELATIONS OFFICER: Sumanth Corley DO, PGY-2 ANESTHESIOLOGIST: Dr. Barahona ANESTHESIA: General endotracheal -- Marcaine 0.5-20 mL. PREOPERATIVE DIAGNOSIS: Gallstone pancreatitis. POSTOPERATIVE DIAGNOSES: Gallstone pancreatitis with liver bed bleeding. PROCEDURES: 11/06/2016: 1. Laparoscopic cholecystectomy with intraoperative cholangiogram. 2. Extensive liver fulguration. 3. Extensive lysis of adhesions. OPERATIVE INDICATION: The patient is a 36-year-old -[place] male with a history of severe ab dominal pain for the past 3 days, prompting his admission to the hospital, demonstrating elevated thelma lase and lipase, and evidence of gallstones on CAT scan, but not ultrasound (very tiny stones). The etiology of what is going on is apparent that the patient had a biliary attack and passed stones caus ing the pancreatitis. He did undergo HIDA scanning demonstrating nonvisualization after 4 hours with very slow visualization after the fifth hour. Description of patient's symptoms was held with the patient and his , and he is aware that he has stones that have become symptomatic and he needs surgery, but may finish out the antibiotic and come back in the future or have it done now. After extensive discussion with his , the patient agree s to have the procedure done now with explanation of the risks, the benefits and the alternatives wit h their anticipated outcomes. OPERATIVE NOTE: The patient is brought to the operating room from the same day holding area. He is identified by his wrist band, undergoes timeout procedure, and is placed on the table in a supine man ner. Following the induction of general anesthesia and the insertion of an endotracheal tube, sequen tial compression devices are placed on his lower extremities. The abdomen is electrically clipped, p repped with Hibiclens chlorhexidine preparation and aseptically draped. The umbilicus is elevated on towel clips, infiltrated with the bupivacaine anesthetic as all port sit es are, incised and a Veress needle inserted and the abdomen insufflated with carbon dioxide gas to 1 4 mmHg pressure. The needle is removed and replaced with a 12 mm port and a Storz operating laparosc ope inserted through same and the abdomen explored. Very dense adhesions to the gallbladder are enco untered at this point and the remainder of the exam is otherwise unremarkable. Under direct vision, the subxiphoid right-sided port is placed and two 5 mm ports are placed in the r ight upper quadrant at the level of the umbilicus. The patient is rotated to the left lateral Oro position and then with head up in a reverse Trendelen alfredo position. The gallbladder is grasped with Prestige clamps and the rubia hepatis is dissected fr ee and the cystic artery and cystic duct dissected. Extensive adhesions and omentum are removed from the gallbladder and from the rubia utilizing electrocoagulating cautery. Once the cystic artery and cystic duct and the critical view of safety is finally achieved, the cystic duct is hemoclipped and incised and intraoperative cholangiography performed demonstrating free flow of a normal cholangiogra m down to the duodenum without evidence of stones in the duct. The catheter is removed. The duct is doubly hemoclipped and transected as is the cystic artery and the gallbladder is now removed from th e liver bed in a prograde fashion utilizing electrocoagulating current. Marked inflammation is encou ntered as this is attack is now 4 days old and edema and bleeding is encountered and extra electrocoa gulation is required for liver bleeding. When the gallbladder is finally removed, virtually all blee ding sites have been controlled and the gallbladder is now removed through the subxiphoid port. The contents are cultured aerobically and anaerobically and the gallbladder placed in formalin for perman ent section analysis. Multiple small stones are seen within the gallbladder, explaining the patient' s symptomatology. The port is now replaced in the subxiphoid location. The patient is placed level supine and the righ t upper quadrant is now lavaged with multi liters of normal saline solution and Endo-Avitene is place d in the liver bed for hemostatic purposes. Due to the concern about postoperative bleeding, a Francisco 15-Hungarian drain is placed in the hepatorenal space of [facility] through the lateral port sites, secure d with 2-0 Surgidac polyester suture. The 2 midline ports are closed with the exit closure device an d 2-0 PDS suture and the skin is closed with the 4-0 subcuticular Biosyn and Dermabond adhesive. The patient is then awakened, extubated and transported to the recovery room in a satisfactory condit ion. Sponge, instrument and suture count were verified as correct at the end of the procedure. Caroline mated blood loss during this procedure was estimated at 75 mL of blood. The botany laboratory assistant was extremely helpful during the entire procedure in exposing and performing d issection and participating in the removal of the gallbladder and controlling the hemorrhage. This dictation will be electronically signed without being read. Gilmar Brown MD cc: [phone] TT: 11/11/2016 07:49:48 en
== END 2016-11-07 17:40 | disposition home or self-care (01) | DRG 405 ==
LOC: ED 03:07 → ERH 05:51 → 5RNO 09:43 → OBSVTOIN 17:05
PROVIDERS: ADMIT Internal Medicine; ATTEND Internal Medicine
PROC: BF001ZZ Plain Radiography of Bile Ducts using Low Osmolar Contrast (ICD-10-PCS; 2016-11-06)
PROC: 0FT44ZZ Resection of Gallbladder, Percutaneous Endoscopic Approach (ICD-10-PCS; principal; 2016-11-06 09:45)
PROC: 0F5 Hepatobiliary System and Pancreas, Destruction (ICD-10-PCS; 2016-11-06 09:45)
PROC: 0DNT4ZZ (ICD-10-PCS; 2016-11-06 09:45)
DX: K80.00 Calculus of gallbladder with acute cholecystitis without obstruction (principal); K85.10 Biliary acute pancreatitis without necrosis or infection; E27.49 Other adrenocortical insufficiency; E66.9 Obesity, unspecified; J98.11 Atelectasis; K66.0 Peritoneal adhesions (postprocedural) (postinfection); K57.30 Diverticulosis of large intestine without perforation or abscess without bleeding; Z68.35 Body mass index [BMI] 35.0-35.9, adult; Z72.0 Tobacco use